=== PATIENT | female | born 1985 | race Hispanic/Latino ===

== ENCOUNTER → 2019-03-07 13:42 | Outpatient (CLI) | payer SELFPAY ==
--- NOTE | 2019-03-07 13:56 | DI.RAD.S_ITS ---
PROCEDURE: XR ANKLE RT MIN 3V INDICATIONS: R ankle and foot pain. TECHNIQUE: 3 views of the ankle were acquired. COMPARISON: None. FINDINGS: Bones: No fractures or dislocations. Ankle mortise is normally aligned. No suspicious bony lesions. Lateral soft tissue swelling IMPRESSION: Lateral soft tissue swelling. No fracture. If the patient's pain or other symptoms persist, consider further evaluation with MRI Dictated by: Jorge Davies M.D. on 03/07/2019 at 16:28 Approved by: Jorge Davies M.D. on 03/07/2019 at 16:30
--- NOTE | 2019-03-07 13:56 | DI.RAD.S_ITS ---
PROCEDURE: XR FOOT RT MIN 3V INDICATIONS: R ankle and foot pain. TECHNIQUE: 3 views of the foot were acquired. COMPARISON: None. FINDINGS: Bones: No fractures or dislocations. No suspicious bony lesions. There is slight flattening of the second metatarsal articular surface Soft tissues: No tibiotalar joint effusion. Achilles tendon appears normal. IMPRESSION: Slight deformity of the second metatarsal head articular surface raising the possibility of [place] infraction (age unknown). Dictated by: Jorge Davies M.D. on 03/07/2019 at 16:59 Approved by: Jorge Davies M.D. on 03/07/2019 at 17:01
== END ==
PROVIDERS: Visit Provider Nurse Practitioner
DX: M25.571 Pain in right ankle and joints of right foot (principal); M79.671 Pain in right foot; M79.89 Other specified soft tissue disorders
CPT/HCPCS: 73610; 73630